=== PATIENT | female | born 1975 | race Caucasian/White ===

== ENCOUNTER 2016-12-22 10:25 | Emergency (ER) | payer BC, OTHER ==
[~2016-12-22] VITALS: Wt 59.0 kg
[~2016-12-22 10:25] MED LIST: ACET1TAB40 PO; ALBU8.5H5 IH; CEPH-443 PO; CIPR500T4 PO; FAMO-18 PO; FLUT9.9S NASAL; IBUP-1542 PO; LORA10CA PO; NP.1OP15 BOTH EYES; PHEN100C PO
--- NOTE | 2016-12-22 12:15 | ERD ---
ER Documentation Chief Complaint Date/Time DATE: 12/22/16 TIME: 12:14 Chief Complaint NEEDS MEDICATION REFILL ON SEIZURE MEDS. NO SEIZURE TODAY, GEN FATIGUE HPI 41 y/o female presents to ED for medication refill for her phenytoin sodium/ Dilantin-for his seizures. Denies any seizures. Denies headache, loss of consciousness, dizziness, blurry vision, changes in vision, photophobia, facial pain, ear pain, throat pain, difficulty swallowing, neck pain, shoulder pain, chest pain, cough, hemoptysis, abdominal pain, back pain, loss of appetite, nausea, vomiting, hematochezia, diarrhea, constipation, urinary symptoms, , the possibility of being , bladder and bowel incontinences, extremity weakness, extremity tenderness, numbness or tingling sensation, difficulty walking, recent travel, recent exposure to illness, recent antibiotic use in the last 3 months, fever, chills. Allergy: NKA PMH: Seizures Family medical history: Denies AO LMP: 11/29/2016 Medications: Phenytoin sodium 300 mg by mouth nightly per Surgery: Hernia repair. Primary Social History: Does not work at this time. Denies smoking, use of alcohol, use of illegal drugs. ROS All systems reviewed and are negative except as per history of present illness. Medications Home Meds Active Scripts Phenytoin* Sodium Extended (Phenytoin* Sodium Extended) 300 Mg Capsule, 300 MG PO HS for 10 Days, CAP Prov:CHRISTIANO NOWAK 12/22/16 Fluticasone Propionate (Flonase Allergy Relief) 9.9 Ml [place].susp, 1 SPRAY NASAL BID, #1 BOTTLE TO EACH NOSTRIL Prov:SABRINA SALEEM 02/16/16 Loratadine* (Claritin*) 10 Mg Capsule, 10 MG PO DAILY for 30 Days, CAP Prov:HARPERSABRINA LANE C 02/16/16 Naphazoline Hcl* (Naphcon*) 0.012% Ophth - 15 ML Drops, 2 DROP BOTH EYES QID for 7 Days, EA Prov:HARPERSABRINA LANE C 02/16/16 Ciprofloxacin Hcl* (Ciprofloxacin Hcl*) 500 Mg Tablet, 500 MG PO BID for 5 Days , TAB Prov:JOE BENITEZ MD 07/15/15 Acetaminophen-Codeine* (Acetaminophen-Cod #3*) 300-30 Mg Tab, 1 TAB PO Q4H Y for PAIN, #10 TAB Prov:JOE BENITEZ MD 07/15/15 Famotidine* (Pepcid*) 20 Mg Tablet, 20 MG PO BID, #30 TAB Prov:JOE BENITEZ MD 07/15/15 Cephalexin* (Keflex*) 500 Mg Capsule, 500 MG PO BID for 7 Days, CAP Prov:SALLY WHITING NP 05/27/15 Ibuprofen* (Motrin*) 600 Mg Tab, 600 MG PO Q6H Y for PAIN AND OR ELEVATED TEMP, #30 Prov:SALLY WHITING MASONRY TEACHER 05/27/15 Reported Medications Albuterol Sulfate* (Albuterol Sulfate* HFA) 8.5 Gm Hfa.aer.ad, 1 PUFF IH DAILY Y for WHEEZING AND SOB, EA 09/26/14 Phenytoin* Sodium Extended (Dilantin*) 100 Mg Capsule, 300 MG PO HS, CAP 09/26/14 Allergies Allergies: Coded Allergies: No Known Allergy (Verified , 08/25/15) PMhx/Soc History of Surgery: Yes (hernia repair) Anesthesia Reaction: No Hx Neurological Disorder: No Hx Respiratory Disorders: No Hx Cardiac Disorders: No Hx Psychiatric Problems: No Hx Miscellaneous Medical Probl: Yes (seizures) Hx Alcohol Use: No Hx Substance Use: No Hx Tobacco Use: No FmHx Denies Physical Exam Vitals Vital Signs Date Time Temp Pulse Resp B/P Pulse Ox O2 Delivery O2 Flow Rate FiO2 12/22/16 12:50 77 18 122/68 99 Room Air 12/22/16 10:38 98.5 80 20 144/81 98 Physical Exam CONSTITUTIONAL: Well-appearing; well-nourished; in no apparent distress. HEAD: Normocephalic; atraumatic. EYES: Conjunctiva clear, sclera non-icteric, EOM intact. PERRL Ears: Hearing intact. EACs clear, TMs non-bulging, non-inflamed, translucent & mobile, ossicles normal appearance, No obstructions, no erythema, no discharges Nose: No obstructions. No polyps. No external lesions. Mucosa non-inflamed. No external lesions, septum and turbinates normal. No rhinorrhea. No discharges. Frontal sinus is non-tender to palpation. Maxillary sinus is non-tender to palpation. MOUTH: Moist mucous membranes, no lesion, no obstructions, no vesicles, no thrush, patent airway Throat: Uvula in midline. Right tonsil is +1 with no erythema, no exudate. Left tonsil is +1 with no erythema, no exudate. Tolerating secretions well. Good gag reflex. Patent airway. Neck: Supple, without lesions, bruits, or adenopathy. No mass. Thyroid non- enlarged and non-tender to palpation. CHEST: Symmetrical chest. Respirations even and not labored. No retractions noted. CARDIOVASCULAR: Normal S1, S2. RRR. No murmurs, gallops. RESPIRATORY: Normal chest excursion with respiration; breath sounds clear and equal bilaterally; no wheezes, rhonchi, or rales. Breathing even and unlabored. Speaking in clear, full, and complete sentences w/ ease. ABDOMEN: Normal bowel sounds normal. Soft, round, non-distended, non-guarding, no tenderness, no rebound, no organomegaly, no masses, no pulsating abdominal mass. No hernia. No peritoneal signs. : No CVA tenderness. BACK: Symmetrical shoulder. Spine is midline without deformity, tenderness. No evidence of trauma or deformity. PELVIS: Stable pelvis. No evidence of trauma or deformity. MUSCULOSKELETAL: Normal gait and station. No misalignment, asymmetry, crepitation, defects, tenderness, masses, effusions, decreased range of motion, instability, atrophy or abnormal strength or tone in the head, neck, spine, ribs , pelvis or extremities. No calf tenderness. NEUROVASCULAR: Distal pulses are present. Pedal pulse are present, equal, and normal. Capillary refills are < 2 seconds. NEUROLOGIC: Alert and oriented x4. Speaks full and clear sentences. Cranial Nerves II-XII normal. Sensation to pain, touch, and proprioception normal. Grossly unremarkable. No neurologic deficits. Romberg test is negative. PSYCHOLOGICAL: The patients mood and manner are appropriate. No hallucinations , delusions. Not SI. Not HI. Has the capacity to decide for self SKIN: Normal for age and ethnicity; warm; dry; good turgor; no apparent lesions or exudates. No rashes, hives, discoloration. Intact. Procedures/MDM Examination: Unremarkable examination. Disease process, medical treatment was explained to the patient. She verbalized understanding. Consultation: None Differential diagnosis: Medication refill Medical decision makin41 y/o female presents to ED for medication refill for her phenytoin sodium/Dilantin-for his seizures. Denies any seizures. Final diagnosis is medication refill. Medications prescribed are the following: Phenytoin sodium/Dilantin. Patient and family member are made aware of the side effects and adverse reactions of the medications prescribed. Instructed on when to seek emergent and medical attention in case allergic/anaphylactic reactions or severe side effects and or adverse reactions to medications. Patient and family member verbalized understanding. Patient instructed Instructed to follow-up with his PCP in 24-48 hours. Community resources given to the patient. Instructed to Call 911 for chest pain, shortness of breath. Advised to come back here in ED as soon as possible for severity of symptoms which includes but not limited to: any new symptoms; shortness of breath/difficulty of breathing; cardiovascular changes; severe gastrointestinal symptoms; signs and symptoms of bleeding and or infection; signs of compartment syndrome/neurovascular changes; neurological changes/deficits. Patient and family member verbalized understanding. Upon discharge, patient is alert and oriented x 4, speaks full and clear sentences, denies pain, has no neurological deficits, has no neurovascular deficits, difficulty of breathing. Breathing even and unlabored. Lung sounds are clear to auscultation. Not in distress. Appears comfortable. Ambulatory with steady gait. Appears satisfied with care provided here in ED. Departure Condition: Good Additional Instructions: Follow-up with primary care physician in 24-48 hours. Community resources were provided to the patient. CHRISTIANO NOWAK Dec 22, 2016 12:15
[2016-12-22] MEDS ORDERED: PHEN300C4 PO (12:20)
[2016-12-22 12:50] VITALS: BP 122/68; PULSE 77; RESP 18
== END 2016-12-22 13:00 | disposition home or self-care (01) ==
LOC: FTE 10:25
DX: Z76.0 Encounter for issue of repeat prescription (principal)
CPT/HCPCS: 99281

== ENCOUNTER 2017-04-21 14:05 | Emergency (ER) | payer OTHER ==
[~2017-04-21] VITALS: Wt 57.5 kg
[~2017-04-21 14:05] MED LIST changes: +PHEN300C4 PO
[2017-04-21] MEDS ORDERED: PHEN100C PO (14:42)
--- NOTE | 2017-04-21 14:50 | ERD ---
ER Documentation Chief Complaint Date/Time DATE: 04/21/17 TIME: 14:46 Chief Complaint refill of antiseizure medications only has one day left HPI 41-year-old female with history of seizure disorder presented to ED today requesting refill of Dilantin. Patient states that she takes 300 mg at bedtime every day. She has only 1 dose left. She has a follow-up appointment with her PCP, but that is next week. She had not had episode of seizure for several years. ROS All systems reviewed and are negative except as per history of present illness. Medications Home Meds Active Scripts Phenytoin* Sodium Extended (Dilantin*) 100 Mg Capsule, 300 MG PO HS for 7 Days, CAP Prov:SALLY WHITING NP 04/21/17 Phenytoin* Sodium Extended (Phenytoin* Sodium Extended) 300 Mg Capsule, 300 MG PO HS for 10 Days, CAP Prov:PASILAYUSUF DRAKEAR F 12/22/16 Fluticasone Propionate (Flonase Allergy Relief) 9.9 Ml [place].susp, 1 SPRAY NASAL BID, #1 BOTTLE TO EACH NOSTRIL Prov:SABRINA SALEEM C 02/16/16 Loratadine* (Claritin*) 10 Mg Capsule, 10 MG PO DAILY for 30 Days, CAP Prov:HARPERSABRINA C 02/16/16 Naphazoline Hcl* (Naphcon*) 0.012% Ophth - 15 ML Drops, 2 DROP BOTH EYES QID for 7 Days, EA Prov:HARPERSABRINA C 02/16/16 Ciprofloxacin Hcl* (Ciprofloxacin Hcl*) 500 Mg Tablet, 500 MG PO BID for 5 Days , TAB Prov:JOE BENITEZ MD 07/15/15 Acetaminophen-Codeine* (Acetaminophen-Cod #3*) 300-30 Mg Tab, 1 TAB PO Q4H Y for PAIN, #10 TAB Prov:JOE BENITEZ MD 07/15/15 Famotidine* (Pepcid*) 20 Mg Tablet, 20 MG PO BID, #30 TAB Prov:JOE BENITEZ MD 07/15/15 Cephalexin* (Keflex*) 500 Mg Capsule, 500 MG PO BID for 7 Days, CAP Prov:SALLY WHITING NP 05/27/15 Ibuprofen* (Motrin*) 600 Mg Tab, 600 MG PO Q6H Y for PAIN AND OR ELEVATED TEMP, #30 Prov:SALLY WHITING ASSISTANT STATISTICIAN 05/27/15 Reported Medications Albuterol Sulfate* (Albuterol Sulfate* HFA) 8.5 Gm Hfa.aer.ad, 1 PUFF IH DAILY Y for WHEEZING AND SOB, EA 09/26/14 Phenytoin* Sodium Extended (Dilantin*) 100 Mg Capsule, 300 MG PO HS, CAP 09/26/14 Allergies Allergies: Coded Allergies: No Known Allergy (Verified , 08/25/15) PMhx/Soc History of Surgery: Yes (hernia repair) Anesthesia Reaction: No Hx Neurological Disorder: No Hx Respiratory Disorders: No Hx Cardiac Disorders: No Hx Psychiatric Problems: No Hx Miscellaneous Medical Probl: Yes (seizures) Hx Alcohol Use: No Hx Substance Use: No Hx Tobacco Use: No Physical Exam Vitals Vital Signs Date Time Temp Pulse Resp B/P Pulse Ox O2 Delivery O2 Flow Rate FiO2 04/21/17 14:07 98.6 83 95/55 97 Physical Exam General: Well-developed, well-nourished, conscious and coherent, in no distress Skin: Warm and dry without rash, good texture and turgor Head: Normocephalic without evidence of trauma Eyes: Sclera and conjunctivae normal; pupils equal, round, and reactive to light; extraocular movements are intact Neck: Supple without meningismus or adenopathy. Carotids are equal. Trachea midline. No bruits or JVD Chest: Normal AP diameter. Good expansion without retractions. Nontender. Lungs are clear to auscultate bilaterally with good tidal volume Heart: Regular rate and rhythm. No murmur, rub, or gallops heard Extremities: Full range of motion. Good strength bilaterally. No clubbing, cyanosis, or edema. Peripheral pulses are intact. Sensation intact Neuro: Alert and oriented 4, GCS 15. Cranial nerves grossly intact. Motor and sensory exams nonfocal. Moves all extremities. Speech clear. Gait normal Procedures/MDM Well-appearing 41-year-old female with history of seizure disorder presented to ED for refill of Dilantin. She has a follow-up appointment with her PCP in 5 days, I informed patient that I will refill her prescription for 7 days and she can get additional refills for per PCP. Also advised patient to make follow-up appointment with her PCP before her prescription is running out. Patient appears well, stable for discharge and outpatient management. Medical decision making shared with patient and family. Education provided to patient and family. Patient and family expressed understanding of the plan. Medications on discharge: Dilantin. Follow-up: Primary care provider in 2-3 days or return to ED if worse. Departure Diagnosis: Primary Impression: Encounter for medication refill Additional Impression: Seizure disorder Condition: Stable Patient Instructions: Taking Medicine Safely Additional Instructions: FOLLOW UP WITH YOUR PRIMARY CARE PHYSICIAN as scheduled.Return to this facility if you are not improving as expected. SALLY WHITING NP April 21, 2017 14:50
== END 2017-04-21 14:43 | disposition home or self-care (01) ==
LOC: E/R 14:05
DX: Z76.0 Encounter for issue of repeat prescription (principal); G40.909 Epilepsy, unspecified, not intractable, without status epilepticus
CPT/HCPCS: 99281

== ENCOUNTER → 2018-02-07 | Outpatient (CLI) | END | disposition home or self-care (01) ==

== ENCOUNTER 2018-08-19 11:48 | Emergency (ER) | END 2018-08-19 13:19 | disposition home or self-care (01) ==

== ENCOUNTER → 2019-07-03 | Emergency (ER) | payer OTHER ==
[~2019-07-03] VITALS: Ht 152.4 cm; Wt 49.2 kg
[~2019-07-03] MED LIST changes: +AMOX1TAB10 PO; +BEN25 PO; -FAMO-18 PO; +FAMO-96 PO; +IBUP-1561 PO; +MED4DP PO
[2019-07-03 11:57] VITALS: BP 98/64; PULSE 78; RESP 18; Ht 152.4 cm; Wt 49.2 kg
--- NOTE | 2019-07-03 12:25 | ERD ---
ER Documentation Chief Complaint Chief Complaint insect bites x 1 month HPI This is a 43-year-old woman complaining of itchy red rash to the legs bilaterally x2 days. She states he had a similar rash earlier in the month which resolved. She states over the last couple days her and her son have been outside a lot and denies sleeping in any hotel rooms or on couches. Patient has had no neck pain or neck stiffness, no fevers or chills, no headache or blurry vision. ROS All systems reviewed and are negative except as per history of present illness. Medications Home Meds Active Scripts Ibuprofen* (Motrin*) 600 Mg Tab, 400 MG PO Q8 PRN for PAIN AND/OR INFLAMMATION, #30 TAB Prov:MISTI BALDWIN MD 07/03/19 Diphenhydramine Hcl* (Benadryl*) 25 Mg Cap, 25 MG PO Q6 PRN for ITCHING/RASH, #30 TAB Prov:MISTI BALDWIN MD 07/03/19 Loratadine* (Claritin*) 10 Mg Capsule, 10 MG PO DAILY, #30 CAP Prov:ASHLEY MARTÍNEZ PA-C 08/19/18 Ibuprofen* (Motrin*) 400 Mg Tab, 400 MG PO Q6, #30 TAB Prov:ASHLEY MARTÍNEZ PA-C 08/19/18 Methylprednisolone* (Medrol* DOSE PACK) 4 Mg/Dose-Pack Tab.ds.pk, 4 MG PO . DIRECTED, #1 PACKET Prov:ASHLEY MARTÍNEZ PA-C 08/19/18 Fluticasone Propionate (Flonase Allergy Relief) 9.9 Ml [place].susp, 1 SPRAY NASAL BID, #1 BOTTLE TO EACH NOSTRIL Prov:ASHLEY MARTÍNEZ PA-C 08/19/18 Amoxicillin/Potassium Clav (Amox-Clav 875-125 mg Tablet) 875-125 mg Tab, 1 TAB PO BID for 10 Days, #20 TAB Prov:ASHLEY MARTÍNEZ PA-C 08/19/18 Phenytoin* Sodium Extended (Dilantin*) 100 Mg Capsule, 300 MG PO HS for 7 Days, CAP Prov:SALLY WHITING INTERACTIVE MARKETING STRATEGIST 04/21/17 Phenytoin* Sodium Extended (Phenytoin* Sodium Extended) 300 Mg Capsule, 300 MG PO HS for 10 Days, CAP Prov:CHRISTIANO NOWAK 12/22/16 Fluticasone Propionate (Flonase Allergy Relief) 9.9 Ml [place].susp, 1 SPRAY NASAL BID, #1 BOTTLE TO EACH NOSTRIL Prov:SABRINA SALEEM 02/16/16 Loratadine* (Claritin*) 10 Mg Capsule, 10 MG PO DAILY for 30 Days, CAP Prov:SABRINA SALEEM C 02/16/16 Naphazoline Hcl* (Naphcon*) 0.012% Ophth - 15 ML Drops, 2 DROP BOTH EYES QID for 7 Days, EA Prov:SABRINA SALEEM 02/16/16 Ciprofloxacin Hcl* (Ciprofloxacin Hcl*) 500 Mg Tablet, 500 MG PO BID for 5 Days, TAB Prov:JOE BENITEZ MD 07/15/15 Acetaminophen-Codeine* (Acetaminophen-Cod #3*) 300-30 Mg Tab, 1 TAB PO Q4H PRN for PAIN, #10 TAB Prov:JOE BENITEZ MD 07/15/15 Famotidine* (Pepcid*) 20 Mg Tablet, 20 MG PO BID, #30 TAB Prov:JOE BENITEZ MD 07/15/15 Cephalexin* (Keflex*) 500 Mg Capsule, 500 MG PO BID for 7 Days, CAP Prov:SALLY WHITING NP 05/27/15 Ibuprofen* (Motrin*) 600 Mg Tab, 600 MG PO Q6H PRN for PAIN AND OR ELEVATED TEMP, #30 Prov:SALLY WHITING NP 05/27/15 Reported Medications Albuterol Sulfate* (Albuterol Sulfate* HFA) 8.5 Gm Hfa.aer.ad, 1 PUFF IH DAILY PRN for WHEEZING AND SOB, EA 09/26/14 Phenytoin* Sodium Extended (Dilantin*) 100 Mg Capsule, 300 MG PO HS, CAP 09/26/14 Allergies Allergies: Coded Allergies: No Known Allergy (Verified , 08/19/18) PMhx/Soc History of Surgery: Yes (hernia repair) Anesthesia Reaction: No Hx Neurological Disorder: Yes (seizures) Hx Respiratory Disorders: Yes (asthma) Hx Cardiac Disorders: No Hx Psychiatric Problems: No Hx Miscellaneous Medical Probl: No Hx Alcohol Use: No Hx Substance Use: No Hx Tobacco Use: No Smoking Status[facility] Family History: No diabetes Physical Exam Vitals Vital Signs Date Temp Pulse Resp B/P (MAP) Pulse Ox O2 O2 Flow FiO2 Time Delivery Rate 07/03/19 97.8 78 18 98/64 (75) 100 11:57 Physical Exam GENERAL: Well-developed, well-nourished, well-hydrated, in no apparent distress, looks nontoxic in appearance CARDIAC: Regular rate and rhythm, no murmurs rubs or gallops LUNGS: Clear bilaterally no wheezing crackles or stridor SKIN: Warm and dry to touch, erythematous pruritic maculopapular lesions over the upper and lower extremities bilaterally, no ulcers or target lesions noted, rash spares palms and soles, no pustules or vesicles EXTREMITIES: No clubbing cyanosis or edema, calves are bilaterally symmetrical, no Homans sign, no popliteal cord sign. Distal pulses equal and bilateral PSYCH: Normal affect without agitation or irritability Procedures/MDM Reassurance was provided, this is consistent with mosquito sting and a localized reaction, patient has no signs or symptoms of cellulitis or anaphylaxis. Patient feels much better at this time, and vital signs are normal, symptoms have improved. I did give strict instructions to return to the ED if symptoms continue or worsen, patient will otherwise follow-up with primary care physician. Patient understood instructions and agreed to plan. Disclaimer: Inadvertent spelling and grammatical errors are likely due to EHR/dictation software use and do not reflect on the overall quality of patient care. Also, please note that the electronic time recorded on this note does not necessarily reflect the actual time of the patient encounter. Departure Diagnosis: Primary Impression: Mosquito bite Encounter type: initial encounter Qualified Codes: W57.XXXA - Bitten or stung by nonvenomous insect and other nonvenomous arthropods, initial encounter Condition: Good Patient Instructions: Insect Bite MISTI BALDWIN MD Jul 03, 2019 12:24
== END | disposition home or self-care (01) ==
LOC: FTE 11:52
DX: S80.861A Insect bite (nonvenomous), right lower leg, initial encounter (principal); S80.862A Insect bite (nonvenomous), left lower leg, initial encounter; J45.909 Unspecified asthma, uncomplicated; W57.XXXA Bitten or stung by nonvenomous insect and other nonvenomous arthropods, initial encounter; Y92.9 Unspecified place or not applicable
CPT/HCPCS: 99282

== ENCOUNTER 2019-10-03 13:35 | Emergency (ER) | payer OTHER ==
[~2019-10-03] VITALS: Ht 154.9 cm; Wt 50.1 kg
[~2019-10-03 13:35] MED LIST changes: +AMOX500C2 PO
[2019-10-03 14:14] VITALS: BP 103/72; PULSE 61; RESP 18; Ht 154.9 cm; Wt 50.1 kg
[2019-10-03] MEDS ORDERED: IBUPROFEN 200 MG TAB PO ONE (15:00)
== END 2019-10-03 14:54 | disposition home or self-care (01) ==
LOC: FTE 13:35
DX: J02.9 Acute pharyngitis, unspecified (principal); J45.909 Unspecified asthma, uncomplicated
CPT/HCPCS: Z7502; Z7610; 99283